=== PATIENT | male | born 1985 | race Hispanic/Latino ===

== ENCOUNTER 2018-04-13 21:54 | Emergency (ER) | payer OTHER ==
[~2018-04-13] VITALS: Ht 185.4 cm; Wt 88.9 kg
[2018-04-13] MEDS ORDERED: TETANUS/DIPHTHERIA TOX ADULT 0.5 ML SYR IM ONE (22:45)
[2018-04-13] MEDS ORDERED: BACITRACIN ZINC 0.9GM TP ONE (23:00)
[2018-04-13 23:07] VITALS: BP 158/86
== END 2018-04-13 23:11 | disposition home or self-care (01) ==
LOC: FSED 21:54
DX: S51.842A Puncture wound with foreign body of left forearm, initial encounter (principal); W26.8XXA Contact with other sharp object(s), not elsewhere classified, initial encounter; W45.8XXA Other foreign body or object entering through skin, initial encounter; Y92.830 Public park as the place of occurrence of the external cause
CPT/HCPCS: 90471; 90714; 99282